=== PATIENT | male | born 1995 | race Caucasian/White ===

== ENCOUNTER 2018-10-01 00:53 | Emergency (ER) | payer OTHER ==
[~2018-10-01] VITALS: Ht 182.9 cm; Wt 66.2 kg
[2018-10-01] MEDS ORDERED: FLUVOXAMINE MAL25 MG PO (01:26)
[2018-10-01] MEDS ORDERED: MELATONIN3 MG PO (01:28)
[2018-10-01] MEDS ORDERED: HYDROXYZINE HCL10 M1 PO (01:30)
[2018-10-01] MEDS ORDERED: FLONASE 0.05%50 MCG (01:31)
[2018-10-01 03:00] VITALS: BP 120/74
--- NOTE | 2018-10-01 09:53 | EKG ---
[place] [address] L[address] [place]am [place] [address] ELECTROCARDIOGRAM REPORT Name: ALICJA GONZALEZ Room #: [facility] [id number] ������������������ Admission: 10/01/18 ������������������ Attend Phys: Discharge: 10/01/18 ������������������ Date of : [birth year] Report #: [id number] ����������������������������������������������������������������� [id number] THIS REPORT FOR: //name// [facility] ED Test Date: 2018-10-01 Test Time: 01:16:32 Pat Name: ALICJA GONZALEZ Department: Room: Gender: [employer]: JASON : 1995 Requested By: Julio Anders Order Number: [id number] MD: Levar Francis Measurements Intervals [place] Rate: 86 P: 78 [place]: 158 QRS: -75 QRSD: 109 T: 76 QT: 365 QTc: 437 Interpretive Statements Sinus rhythm Incomplete RBBB and LAFB RSR' in V1 or V2, probably normal variant No previous ECG available for comparison Electronically Signed On 10-01-2018 9:53:46 CDT by Levar Francis [email or web address] ��������������������������������������������� <ELECTRONICALLY SIGNED> ���������������������������������������� By: Levar Francis MD, [facility] ��������������������������������������������� 10/01/18 [id number] Levar Francis MD, FACC /EPI
== END 2018-10-01 03:00 | disposition home or self-care (01) ==
LOC: ER 00:53
DX: F41.0 Panic disorder [episodic paroxysmal anxiety] (principal); Z88.2 Allergy status to sulfonamides; Z88.8 Allergy status to other drugs, medicaments and biological substances

== ENCOUNTER 2018-11-22 12:10 | Emergency (ER) | payer OTHER ==
[~2018-11-22] VITALS: Ht 182.9 cm; Wt 68.0 kg
[~2018-11-22 12:10] MED LIST: FLONASE 0.05%50 MCG; FLUVOXAMINE MAL25 MG PO; HYDROXYZINE HCL10 M1 PO; MELATONIN3 MG PO
[2018-11-22 12:16] VITALS: BP 124/97
== END 2018-11-22 13:15 | disposition home or self-care (01) ==
LOC: ER 12:10
DX: S06.0X0A Concussion without loss of consciousness, initial encounter (principal); Z88.2 Allergy status to sulfonamides; Z88.8 Allergy status to other drugs, medicaments and biological substances; Z79.899 Other long term (current) drug therapy; W22.03XA Walked into furniture, initial encounter; Y93.89 Activity, other specified; Y92.89 Other specified places as the place of occurrence of the external cause; Y99.9 Unspecified external cause status